=== PATIENT | male | born 1995 | race Asian ===

== ENCOUNTER 2019-02-08 09:33 | Emergency (ER) | payer OTHER ==
[~2019-02-08] VITALS: Ht 170.2 cm; Wt 82.1 kg
[2019-02-08 09:36] VITALS: BP 165/113; Ht 170.2 cm; Wt 82.1 kg
== END 2019-02-08 11:17 | disposition home or self-care (01) ==
LOC: ED 09:33
DX: S62.637A Displaced fracture of distal phalanx of left little finger, initial encounter for closed fracture (principal); S60.151A Contusion of right little finger with damage to nail, initial encounter; W22.8XXA Striking against or struck by other objects, initial encounter; Y93.89 Activity, other specified; Y92.89 Other specified places as the place of occurrence of the external cause; Y99.8 Other external cause status
CPT/HCPCS: Q0092